=== PATIENT | male | born 1975 | race Caucasian/White ===

== ENCOUNTER 2017-03-05 02:01 | Emergency (ER) | payer MEDICAID ==
[2017-03-05 02:12] VITALS: BP 136/90
[2017-03-05] MEDS ORDERED: TETRACAINE HCL 150 DROP BTL ONE (02:21)
[2017-03-05] MEDS ORDERED: ERYTHROMYCIN BASE 3.5 APPL TUBE LEFTEYE ONE (02:30)
--- NOTE | 2017-03-05 02:32 | ERNOTE ---
ENT HPI Time Seen by Provider: 03/05/17 02:19 Source: patient - Immun/Allergies/Home Medications Immunizations: IMMUNIZATION HX Immunizations Up to Date Yes History of Influenza Vaccine No Hx Pneumococcal Vaccination No Allergies/Adverse Reactions: Allergies Allergy/AdvReac Type Severity Reaction Status Date / Time No Known Allergies Allergy Verified 12/03/14 12:42 Home Medications: HOME MEDICATIONS Penicillin V Potassium [Pen-Vee K] 500 mg PO Q12H #20 tab 06/07/15 [Last Taken Unknown] traMADol HCL [Ultram] 50 mg PO QID PRN #30 tab 06/07/15 [Last Taken Unknown] Permethrin [Elimite] 60 gm TP ONCE #60 cream..g. 12/23/15 [Last Taken Unknown] Polymyxin B Sulf/Trimethoprim [Polytrim Ophthalmic Solution] 1 drop OP TID 3 Days 03/05/17 [Last Taken Unknown] - History of Present Illness Narrative: pt here for left eye irritation. Pt states that earlier maybe some dirt went into his left eye. He rubbed his left eye now it is irritated, red and swollen. the eyelids are also swollen. vision is not affected. Pt has not taken any meds for this - Patient's Past Medical History Patient History - Medical: No pertinent hx Patient History - Cardiac/Respiratory: No pertinent hx Patient History - Cancer: No Hx of Cancer Patient History - Surgical Procedures: No surgical history Patient History - Other: None - Social History Living Situations: significant other Abuse History: No History of abuse Psych History: No pertinent hx Does anyone smoke in the home?: Yes Smoking Status: Current every day smoker Alcohol Use: occasionally Drug Use: none - Immunizations Immunizations Up to Date: Yes Hx Pneumococcal Vaccination: No History of Influenza Vaccine: No Physical Exam - Physical Exam General Appearance: Present: wd/wn, alert, no apparent distress Eye Exam: Other: left - patient's left conjunctiva is injected no fb noted, no abrasions noted under flouro dye. lids are edematic and reddish and irritated but inversion of eyelids does not result any any fb or abrasions or lesions Ears, Nose, Throat: Present: normal ENT inspection Respiratory: Present: no respiratory distress Cardiovascular/Chest: Present: regular rate, rhythm ED Progress - Vital Signs Patient's Vital Signs:: I have reviewed the patient's vital signs. Vital Signs: Vital Signs 03/05/17 02:02 Temperature 37.3 C Pulse Rate 71 Respiratory 18 Rate Blood Pressure 136/90 O2 Sat by Pulse 96 Oximetry - Progress/Reassessment Chief Complaint: Eye Injury/Trauma Departure Clinical Impression: Conjunctivitis, left eye Qualifiers: Conjunctivitis type: unspecified Qualified Code(s): H10.9 - Unspecified conjunctivitis - Departure Disposition: Home self-care Condition: Good Instructions: Bacterial Conjunctivitis, [id number] Prescriptions: Polymyxin B Sulf/Trimethoprim [Polytrim Ophthalmic Solution] 1 drop OP TID 3 Days
[2017-03-05] MEDS ORDERED: ERYTHROMYCIN BASE 3.5 APPL TUBE ONE (02:38)
== END 2017-03-05 02:45 | disposition home or self-care (01) ==
LOC: ER 02:01
DX: H10.9 Unspecified conjunctivitis (principal); F17.200 Nicotine dependence, unspecified, uncomplicated